=== PATIENT | male | born 1955 | race Caucasian/White ===

== ENCOUNTER 2021-11-28 19:04 | Emergency (ER) | payer OTHER, SELFPAY ==
[2021-11-28 20:49] VITALS: BP 142/80; PULSE 82; RESP 18; TEMP 36.2; O2SAT 93; BMI 39.9
--- NOTE | 2021-11-28 21:28 | ED_ITS ---
HPI - Wound/Laceration General Chief Complaint: Laceration/Wound Stated Complaint: CUT THUMB ON TIN CAN Time Seen by Provider: 11/28/21 21:09 History of Present Illness HPI narrative: Pt is a 66 year old who is not up to date on his tetanus shot cut the steinberg surface of the left thumb on a soup can 36 hours ago. Pt states that he dressed the wound but it is gaping and bleeding is not controlled. Pt takes both Plavix and Aspirin. No neuromuscular defects otherwise feels well. No pain. Wound is 3.5 cm distal to the ip joint on the left thumb. Related Data Home Medications Medication Instructions Recorded Confirmed blood sugar diagnostic (Accu-Chek 11/28/21 11/28/21 Guide test strips) clopidogrel 75 mg tablet mg 11/28/21 empagliflozin 10 mg tablet mg 11/28/21 (Jardiance) glipizide 10 mg tablet, extended mg PO 11/28/21 release 24 hr hydrochlorothiazide 12.5 mg capsule mg 11/28/21 lisinopril 40 mg tablet mg 11/28/21 metoprolol tartrate 50 mg tablet mg 11/28/21 nitroglycerin 0.4 mg sublingual mg 11/28/21 tablet pravastatin 10 mg tablet mg 11/28/21 Allergies Allergy/AdvReac Type Severity Reaction Status Date / Time niacin Allergy Intermediate Hives Verified 11/28/21 20:57 Review of Systems Status of ROS: Reports: 10 or more systems reviewed and unremarkable except as noted in History and below PFSH PFS Social History Smoking Status: Unknown if ever smoked Do you use any of these nicotine containing products: Smokeless Tobacco Second hand tobacco smoke exposure: No How often do you have a drink containing alcohol: never How often do you have six or more drinks on one occasion: Never AUDIT-C Alcohol total score: 0 Non-prescribed substance use: denies use Exam Narrative: Exam Narrative: EXAM GENERAL: Patient appears comfortable and well. EYES: No scleral icterus. THYROID: no thyroid nodules or thyromegaly. LYMPH: No supraclavicular or cervical lymphadenopathy. SKIN: Visible skin seen during exam normal or with benign process only. EXT: L thumb laceration as mentioned above HEART: Regular rate and rhythm with no murmurs, rubs, or gallops. LUNGS: Clear to auscultation bilaterally with no crackles or wheezes. ABD: Soft, non tender, non distended. PSYCH: Good eye contact, speech is not pressured. Const: Vital Signs, click to edit/add: Vital Signs - 24 hr 11/28/21 20:49 Temperature 97.2 F L Pulse Rate [Left P ulse Oximeter] 82 Respiratory Rate 18 Blood Pressure [Ri ght Upper Arm] 142/80 H Pulse Oximetry 93 Oxygen Delivery Me thod Room Air Course Course Hospital Course: We did discuss that delayed wound closer increases the risk of infection. He und erstands this risk and would like to proceed with closure Wound was cleaned and injected with 1% lidocaine without epinephrine. Wound was closed with 5 running 3-0 ethylon sutures with good wound closer. Wound was dressed and care was explained. Tdap updated Vital Signs Vital signs: Initial Vital Signs Temperature 97.2 F L 11/28/21 20:49 Temperature Source Temporal Artery Scan 11/28/21 20:49 Pulse Rate 82 11/28/21 20:49 Pulse Rhythm 11/28/21 20:49 Pulse Strength 3+ Normal 11/28/21 20:49 Respiratory Rate 18 11/28/21 20:49 Blood Pressure 142/80 H 11/28/21 20:49 Blood Pressure Mean 100 11/28/21 20:49 Blood Pressure Position Sitting 11/28/21 20:49 Pulse Oximetry 93 11/28/21 20:49 Oxygen Delivery Method 11/28/21 20:49 Vital Signs Temperature 97.2 F L 11/28/21 20:49 Pulse Rate 82 11/28/21 20:49 Respiratory Rate 18 11/28/21 20:49 Blood Pressure 142/80 H 11/28/21 20:49 Pulse Oximetry 93 11/28/21 20:49 Oxygen Delivery Method 11/28/21 20:49 Temperature 97.2 F L 11/28/21 20:49 Pulse Rate 82 11/28/21 20:49 Respiratory Rate 18 11/28/21 20:49 Blood Pressure 142/80 H 11/28/21 20:49 Pulse Oximetry 93 11/28/21 20:49 Oxygen Delivery Method 11/28/21 20:49 MDM - Wound/Laceration MDM Narrative Medical decision making narrative: We did discuss that delayed wound closer increases the risk of infection. He understands this risk and would like to proceed with closure Wound was cleaned and injected with 1% lidocaine without epinephrine. Wound was closed with 5 running 3-0 ethylon sutures with good wound closer. Wound was dressed and care was explained. Tdap updated Differential Diagnosis Differential diagnosis: Likely laceration, abrasion and avulsion of skin Discharge Plan Discharge Clinical Impression: Laceration Patient Disposition: Home, Self-Care Condition: Stable Instructions: Laceration (ED) Additional Instructions: Keep clean Daily dressing changes Sutures out in 7-10 days Activity Level: Activity as Tolerated Discharge Diet: Regular Prescriptions: No Action glipizide 10 mg tablet extended release 24hr PO clopidogrel 75 mg tablet (DME) Accu-Chek Guide test strips Strip MISCELLANEOUS pravastatin 10 mg tablet metoprolol tartrate 50 mg tablet hydrochlorothiazide 12.5 mg capsule nitroglycerin 0.4 mg tablet, sublingual lisinopril 40 mg tablet Jardiance 10 mg tablet Stand Alone Forms: [facility] Info Instructions
[2021-11-28] MEDS: TETANUS/DIPHTH/PERTUSSIS 0.5 ML SYRINGE IM (21:30)
--- NOTE | 2021-11-28 21:30 | ED.NURSE ---
Tdap Adacel 0.5mL dose given IM to pt R deltoid. Lot# [id number], Exp date: 12/06/2023. VIS given to pt: 10/21/2020.
--- NOTE | 2021-11-28 22:00 | ED.NURSE ---
Bacitracin applied to L thumb lac, lac bandaged with telfa and tube gauze.
[2021-11-28 22:11] VITALS: PULSE 91; O2SAT 94
== END 2021-11-28 22:15 | disposition home or self-care (01) ==
LOC: ED 21:42
PROVIDERS: Emergency Provider Internal Medicine; PCP Surgery
DX: S61.012A Laceration without foreign body of left thumb without damage to nail, initial encounter (principal); W26.8XXA Contact with other sharp object(s), not elsewhere classified, initial encounter; Y93.G3 Activity, cooking and baking; Y92.010 Kitchen of single-family (private) house as the place of occurrence of the external cause; Y99.8 Other external cause status
CPT/HCPCS: 12002; 90471; 90715; 99281; 99283